=== PATIENT | male | born 1960 | race American Indian/Alaskan Native ===

== ENCOUNTER 2017-08-21 13:20 | Outpatient (CLI) | payer OTHER ==
--- NOTE | 2017-08-22 09:45 | XRay Report ---
XRAY LEFT KNEE 4 THREE VIEWS: 08/21/17 CLINICAL: Status post left knee replacement. No comparison. FINDINGS: Status post total knee replacement with normal appearance of the prosthesis. No apparent loosening. No fracture or dislocation.No joint effusion.Moderate anterior and medial soft tissue edema. No foreign body or soft tissue air. IMPRESSION: Status post total knee replacement with nonspecific soft tissue edema.
== END 2017-08-21 13:21 | disposition home or self-care (01) ==
LOC: SPVIMAG 13:20
PROVIDERS: ATTEND Orthopaedic Surgery Sports Medicine
DX: Z47.1 Aftercare following joint replacement surgery (principal); Z96.652 Presence of left artificial knee joint

== ENCOUNTER 2017-12-03 15:09 | Outpatient (CLI) | payer OTHER ==
--- NOTE | 2017-12-03 16:43 | XRay Report ---
XRAY RIGHT KNEE 4 THREE VIEWS: 12/03/17 CLINICAL: Right knee pain. FINDINGS: Status post total joint replacement with normal appearance of the prosthesis. The superolateral aspect of the patella appears fragmented on AP and oblique views. No joint effusion. Normal soft tissues. IMPRESSION: Negative study status post total joint replacement.
== END 2017-12-03 15:10 | disposition home or self-care (01) ==
LOC: SPVIMAG 15:09
PROVIDERS: ATTEND Orthopaedic Surgery Sports Medicine
DX: M25.561 Pain in right knee (principal); Z96.651 Presence of right artificial knee joint